=== PATIENT | male | born 2000 | race African-American/Black ===

== ENCOUNTER 2020-05-02 20:49 | Emergency (ER) | payer OTHER, SELFPAY ==
[2020-05-02 20:50] VITALS: BP 120/74; PULSE 80; RESP 14; TEMP 37.1; O2SAT 100; BMI 26.9
--- NOTE | 2020-05-02 21:04 | ED.RN ---
CALLED FOR EKG PER RN REQUEST, NO OLD EKGS IN MUSE
--- NOTE | 2020-05-02 21:12 | EKG12_ITS ---
Test Reason : DYSRHYTHMIA Blood Pressure : / mmHG Vent. Rate : 075 BPM Atrial Rate : 075 BPM P-R Int : 150 ms QRS Dur : 100 ms QT Int : 348 ms P-R-T Axes : 061 076 045 degrees QTc Int : 388 ms Sinus rhythm with marked sinus arrhythmia Minimal voltage criteria for LVH, may be normal variant Early repolarization Borderline ECG Confirmed by DOC MORIN, GUANAKITO ([id number]), manuscript editor SORAYA PARDO ([id number]) on 05/07/2020 2:18:35 PM Referred By: CL Confirmed By:GUANAKITO ROACH MD
[2020-05-02 21:25] LABS: Absolute Lymphocyte Count 1.51 X10^3/uL (0.83-4.51); Basophil# 0.03 X10^3/uL; Basophil% 0.4 % (0-1); Eosinophil# 0.13 X10^3/uL; Eosinophils% 1.6 % (0-5); Hematocrit 42.8 % (40-54); Hemoglobin 14.4 g/dL (13.0-16.5); Lymphocyte # 1.51 X10^3/ul (4.0); Lymphocyte % 18.3 % (19-41); Mean Corp Hgb Conc 33.6 g/dL (32-36); Mean Corpuscular Hgb 31.4 pg (27.0-32.0); Mean Corpuscular Volume 93.2 fL (80-94); Mean Platelet Vol. 11.2 fl (6.2-12.0); Monocyte# 0.58 X10^3/uL; NRBC Flagged by Analyzer 0 % (0-5); Neutrophil # 5.97 X10^3/uL (2.7-7.7); Neutrophil % 72.3 % (47-70); Platelet Count 238 K/mm3 (150-450); RBC Distribution Width CV 11.9 % (11.6-14.6); RBC Distribution Width SD 40.7 fl (35.1-43.9); Red Blood Count 4.59 M/mm3 (4.6-6.2); White Blood Count 8.3 K/mm3 (4.4-11.0)
[2020-05-02] MEDS: 0.9% Normal Saline 1,000 ML 1000 ML IV (21:30)
[2020-05-02] MEDS: Ondansetron 4 MG/2 ML Vial IV (21:30)
[2020-05-02 21:36] LABS: Bedside Glucose 74 mg/dL (70-110)
--- NOTE | 2020-05-02 21:39 | RAD_ITS ---
STUDY: X-RAY CHEST REASON FOR EXAM: Male, 19 years old. PT WAS AT [employer] WHEN HE COULDN''T CATCH HIS BREATH. PREVENTION SPECIALIST TOOK HIM OUTSIDE AND HE HAD NEAR SYNCOPE. PT STATES HE HAD ASTHMA WHEN HE WAS YOUNGER BUT HASN''T USED AN INHALER IN YEARS. BLOOD SUGAR FOR EMS WAS 84. PT STATES ABDOMINAL PAIN AND NAUSEA RECENTLY and quot; TECHNIQUE: Single frontal view of the chest. COMPARISON: None. FINDINGS: The lungs are clear and expanded. There is no demonstrated pleural abnormality. Normal size heart. Normal mediastinum and south. Normal visualized pulmonary arteries. Normal visualized aortic arch and descending thoracic aorta. Normal visualized thoracic spine. Normal visualized ribs, clavicles, and shoulders. There is no demonstrated abnormality of the visualized soft tissue structures of the upper abdomen. RAD/Chest 1 View (Portable) IMPRESSION: Normal x-ray examination of the chest. Electronically Signed: Umu Huertas MD at 22:23 EDT Tel , Service support ,
[2020-05-02 22:10] LABS: ALB/GLOB Ratio 1.2 RATIO (0.9-2.4); AST(SGOT) 27 U/L (15-37); Alanine Aminotransfer ALT/SGPT 27 U/L (16-61); Albumin, Serum 4.1 g/dL (3.2-5.0); Alkaline Phosphatase 79 U/L (45-117); Anion Gap 11 (5-15); BUN 15 mg/dL (7-18); BUN/Creat Ratio 8.1 RATIO (10-20); Calcium,Total 9.8 mg/dL (8.5-10.1); Chloride 108 mmol/L (98-107); Creatinine, Serum 1.86 mg/dL (0.70-1.30); EST Glomerular Filtration Rate 49 mL/min (>60); Est Glom Filt Rate - Afr Amer 59 mL/min (>60); Estimated Creatinine Clearance 79.84 ml/min; Globulin 3.5 g/dL (2.2-4.2); Glucose 83 mg/dL (74-106); Potassium 3.8 mmol/L (3.5-5.1); Protein, Total 7.6 g/dL (6.4-8.2); Sodium Level 142 mmol/L (136-145)
[2020-05-02 22:23] VITALS: BP 128/74; PULSE 69; RESP 18; O2SAT 100
--- NOTE | 2020-05-02 22:46 | ED.DCSUM_ITS ---
History of Present Illness Chief Complaint: Syncope Informant: Patient Narrative: 19 year-old male with no past medical history presents with concern for presyncope and shortness of breath. Patient was exerting himself today at basketball practice when he began increasingly short of breath. [place] like he was going to pass out. May have passed out. No head injury. States that he is feeling well now. States he has felt nauseous for the past few days. States he has had one episode of vomiting. Not eating or drinking well today. Past Medical History - Allergies and Home Meds Allergies/Adverse Reactions: Allergies No Known Allergies Allergy (Verified 05/02/20 20:56) Past Medical History: None Surgical History: no surgical history Lives: Alone Smoking Status: Never smoker Alcohol: None Drugs: None Review of Systems General: Denies: Chills, Fever, Sweats Eyes: Denies: Visual changes - bilaterally, Diplopia ENT: Denies: Rhinorrhea, Sore throat Cardiovascular: Denies: Chest pain, Palpitations Respiratory: Reports: Dyspnea. Denies: Cough, Dyspnea on exertion Gastrointestinal: Denies: Abdominal pain, Nausea, Vomiting, Diarrhea, Melena, Hematochezia Genitourinary: Denies: Dysuria, Hematuria, Frequency Musculoskeletal: Denies: Back pain, Extremity Pain Skin: Denies: Rash, Wounds Neurological: Reports: - - Syncope. Denies: Headache, Weakness, Numbness Physical Exam Vital Signs/Narrative: Vital Signs Temp Pulse Resp BP Pulse Ox 05/02/20 22:23 69 18 128/74 H 100 05/02/20 20:50 98.7 F 80 14 120/74 100 Inital Vital Signs reviewed: Yes General: Well nourished, Well developed, No Acute Distress Head: Normocephalic, Atraumatic Eyes: Perrl, EOMI ENT: Moist mucous membranes, No rhinorrhea Neck: Supple, Nontender Cardiovascular: Regular rate, Regular rhythm, No murmurs Respiratory: No distress, CTA bilaterally, Chest nontender Abdomen: Soft, Nontender, Nondistended, Normal bowel sounds Back: Nontender, Normal Inspection Extremities: Nontender, No edema Skin: Normal color, No rash Neurological: Alert, Oriented x3, Cranial nerves II-XII grossly intact, Normal Strength, Normal Sensation Psychological: Normal affect, Normal Mood Diagnostic/Tx/Re-eval Clinical Impression(s) from Imaging Studies Chest X-Ray 05/02/20 21:39 IMPRESSION: Normal x-ray examination of the chest. Electronically Signed: Umu Huertas MD at 22:23 EDT Tel , Service support , Laboratory Data 05/02/20 05/02/20 05/02/20 20:57 20:57 21:29 WBC 8.3 RBC 4.59 L Hgb 14.4 Hct 42.8 MCV 93.2 MCH 31.4 MCHC 33.6 RDW Std Deviation 40.7 RDW Coeff of Carol 11.9 Plt Count 238 MPV 11.2 Immature Gran % (Auto) 0.400 Neut % (Auto) 72.3 H Lymph % (Auto) 18.3 L Franklin % (Auto) 7.0 Eos % (Auto) 1.6 Baso % (Auto) 0.4 Absolute Neuts (auto) 6.0 Absolute Lymphs (auto) 1.51 Nucleated RBC % 0 Sodium 142 Potassium 3.8 Chloride 108 H Carbon Dioxide 23.0 Anion Gap 11 BUN 15 Creatinine 1.86 H Estim Creat Clear Calc 79.84 Est GFR (MDRD) Af Amer 59 L Est GFR (MDRD) Non-Af 49 L BUN/Creatinine Ratio 8.1 L Glucose 83 Calcium 9.8 Total Bilirubin 1.20 H AST 27 ALT 27 Alkaline Phosphatase 79 Troponin I < 0.015 Total Protein 7.6 Albumin 4.1 Globulin 3.5 Albumin/Globulin Ratio 1.2 POC Glucose 74 - Rhythm Strip Rhythm Strip: Sinus Rhythm Rate: 75 - EKG Initial EKG Interpretation: Sinus Rhythm - Sinus rhythm at 75 bpm. NH interval of 150 ms. QTC of 388 ms. LVH. Early repolarization. - Medical Decision Making Appears well nontoxic. Vital signs within normal limits. EKG concerning for LVH. No evidence of acute ischemia. Lab work shows volume depletion. Patient given 1 L of normal saline. Given Zofran advised on continued p.o. hydration. Patient will be given follow-up with cardiology. Advised on outpatient echocardiogram. Expressed extreme concern for no physical activity until echocardiogram can be performed. Advised to return for any further symptoms. Patient agreeable and discharged home in stable condition. ED Disposition - Plan for ED Patient: Disposition: Home or Assisted Living Instructions: ED Near-Fainting Uncertain Cause, Dehydration Prescriptions: Ondansetron [Zofran Odt] 4 mg PO Q8H PRN PRN #10 tab PRN Reason: Nausea Prescription Printed Referrals: Timmy Mancilla MD [STAFF PHYSICIAN] - As soon as possible Additional Instructions: Please call cardiology tomorrow to set up follow-up. Please ask about outpatient echocardiogram.
[2020-05-02 23:13] VITALS: BP 133/71; PULSE 71; RESP 20; O2SAT 100
== END 2020-05-02 23:14 | disposition home or self-care (01) ==
LOC: ED 22:53
PROVIDERS: Emergency Provider Emergency Medicine
DX: R55 Syncope and collapse (principal); R94.31 Abnormal electrocardiogram [ECG] [EKG]
CPT/HCPCS: 71045; 80053; 82962; 84484; 85025; 93005; 96361; 96374; 99285; J2405

== ENCOUNTER → 2020-07-19 08:55 | Outpatient (CLI) | payer MEDICAID, SELFPAY ==
[2020-05-14 13:54] VITALS: BMI 26.5
--- NOTE | 2020-07-19 08:58 | ECHOCS_ITS ---
Version 2 Reason For Study: Syncope Procedure This was a 2D Doppler, Color Flow transthoracic echocardiogram. Contrast injection was performed. Exam performed in department. Left Ventricle Normal LV size. The estimated ejection fraction is 50-55 %. No evidence for diastolic dysfunction. No regional wall motion abnormalities noted. Right Ventricle Normal RV size. Normal systolic function. Atria Normal left atrium. Normal right atrium. No doppler evidence for ASD. Mitral Valve There is no mitral valve stenosis. Mild (1+) mitral valve insufficiency. Tricuspid Valve There is no tricuspid stenosis. Mild tricuspid valve insufficiency. Pulmonary artery systolic pressure is 25 mmHg. Aortic Valve Trisinus/trileaflet aortic valve. There is no aortic stenosis. No aortic valve insufficiency. Pulmonic Valve There is no pulmonic valvular stenosis. Trivial pulmonic valve insufficiency. Great Vessels Normal aortic root. Pericardium/Pleural No pericardial effusion. Medication Diluted definity 4ml given slow IV push to enhance endocardial definition. MMode/2D Measurements & Calculations LVIDd: 5.4 cm IVSd: 0.84 cm Ao root diam: 2.5 cm LVIDs: 3.9 cm LVPWd: 1.1 cm RVDd: 3.3 cm FS: 27.5 % LAV(MOD-bp): 40.3 ml LVAd ap4: 39.8 cm2 SV(MOD-sp4): 77.2 ml LAV(MOD-bp) Indexed: 17.7 ml/m2 EDV(MOD-sp4): 140.1 ml LAV(MOD-sp2): 51.1 ml EDV(sp4-el): 143.4 ml LAV(MOD-sp4): 27.3 ml LVAs ap4: 24.5 cm2 ESV(MOD-sp4): 62.9 ml ESV(sp4-el): 64.4 ml EF(MOD-sp4): 55.1 % EF(sp4-el): 55.1 % SV(sp4-el): 79.0 ml LA A4 area: 13.5 cm2 LA dimension(2D): 3.2 cm RA A4 area: 18.3 cm2 Doppler Measurements & Calculations MV E max jack: 69.6 cm/sec Lat Peak E' Jack: 18.3 cm/sec Med Peak E' Jack: 11.2 cm/sec MV A max jack: 45.0 cm/sec E/E' lat: 3.8 E/E' med: 6.2 MV E/A: 1.5 Ao V2 max: 120.2 cm/sec LV V1 max: 106.4 cm/sec PA V2 max: 96.3 cm/sec Ao max P.8 mmHg LV V1 max P.5 mmHg Ao V2 mean: 84.1 cm/sec Ao mean P.1 mmHg Ao V2 VTI: 24.5 cm TR max jack: 229.9 cm/sec TR max P.1 mmHg Interpretation Summary The estimated ejection fraction is 50-55 %. No evidence for diastolic dysfunction. Mild (1+) mitral valve insufficiency. Ordering Physician: Timmy Mancilla Referring Physician: Len Nichols Performed By: Ingrid Ramirez, FREYA, RVT
== END ==
PROVIDERS: PCP Family Medicine; Referring Provider Family Medicine; Visit Provider Family Medicine
DX: R55 Syncope and collapse (principal)
CPT/HCPCS: 93306; Q9957; A4216; C8929

== ENCOUNTER → 2020-07-24 11:54 | Outpatient (CLI) | payer MEDICAID, SELFPAY ==
[2020-05-14 13:54] VITALS: BMI 26.5
== END ==
PROVIDERS: PCP Family Medicine; Referring Provider Specialist; Visit Provider Specialist
DX: R00.2 Palpitations (principal); R55 Syncope and collapse
CPT/HCPCS: 93225; 93226

== ENCOUNTER → 2020-10-15 16:13 | Outpatient (CLI) | payer MEDICAID, SELFPAY ==
[2020-05-14 13:54] VITALS: BMI 26.5
[2020-10-15 16:44] LABS: Absolute Lymphocyte Count 1.98 X10^3/uL (0.83-4.51); Absolute Neutrophil Count 2.6 X10^3/uL (2.0-7.7); Basophil# 0.06 X10^3/uL; Basophil% 1.1 % (0-1); Eosinophil# 0.27 X10^3/uL; Hematocrit 47.5 % (40-54); Hemoglobin 15.7 g/dL (13.0-16.5); Lymphocyte # 1.98 X10^3/ul (4.0); Lymphocyte % 36.8 % (19-41); Mean Corp Hgb Conc 33.1 g/dL (32-36); Mean Corpuscular Hgb 30.2 pg (27.0-32.0); Mean Corpuscular Volume 91.3 fL (80-94); Mean Platelet Vol. 11.4 fl (6.2-12.0); Monocyte# 0.51 X10^3/uL; Monocyte% 9.5 % (0-10); NRBC Flagged by Analyzer 0 % (0-5); Neutrophil # 2.55 X10^3/uL (2.7-7.7); Neutrophil % 47.4 % (47-70); Platelet Count 269 K/mm3 (150-450); RBC Distribution Width CV 11.6 % (11.6-14.6); RBC Distribution Width SD 39.1 fl (35.1-43.9); White Blood Count 5.4 K/mm3 (4.4-11.0)
== END ==
DX: R19.5 Other fecal abnormalities (principal)
CPT/HCPCS: 36415; 85025

== ENCOUNTER 2020-11-12 06:24 | Day surgery (SDC) | payer MEDICAID, SELFPAY ==
[2020-11-07 14:30] VITALS: BMI 27.0
[2020-11-12] VITALS (7 sets, daily range): BP systolic 99–119; BP diastolic 55–70; PULSE 44–55; RESP 16; TEMP 35.9–36.2; O2SAT 98–100; BMI 26.2
[2020-11-12] MEDS: Lactated Ringers 1,000 ML 100 ML IV (07:00)
--- NOTE | 2020-11-12 07:12 | HP.PCM_ITS ---
History and Physical Date of Admission: 11/12/20 Date of Service: 11/07/20 MR#: [id number] Acct: [id number] Name: MAIKEL FELIX Jr. p #: [phone] : 2000 Provider: Dr. Dedra Ward MD Age/Sex: 20/M Location: [facility] Status: Signed Intake Vital Signs 11/07/20 Height 6 ft 5 in 11/07/20 Weight: 228 lb 11/07/20 BMI 27.0 11/07/20 BP 109/77 11/07/20 Blood Pressure Location Rt brachial 11/07/20 Position Sitting 11/07/20 Respiration 16 11/07/20 Pulse 69 11/07/20 Pulse Source Monitor 11/07/20 Temp 98.0 F 11/07/20 Temp Source Temporal 11/07/20 Pulse Oximetry (%) 98 11/07/20 Oxygen Delivery Method room air Intake Visit Reasons: Rectal Bleeding C-Scope Heavy Equipment Operator Required: No Is patient in pain?: No Allergies No Known Allergies Allergy (Verified 11/07/20 14:31) Medications NK 05/14/20 [History Confirmed 11/07/20] PFSH Medical History Acid reflux (Acute) Constipation (Acute) Anxiety (Acute) Shortness of breath (Acute) Syncope (Acute) Surgical History No significant past surgical history (Acute) Family History Grandfather Diabetes Social History (Updated 11/07/20 @ 14:[address] 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 Patient states since mid August he has been having small amount of bright red blood on the toilet paper when he wipes he states he has not anything for about a week and a half. Patient did state that he did change his diet about a week and half ago and in creased fiber. Patient admits to currently no straining he did state he did previously strain. Patient denies any pain with bowel movements does state he may have some occasional itchiness. Patient denies any abdominal pain or any family history of colon cancer. Patient is never had a previous scope. Patient states when this all started he did have some constipation in August. Exam Const General: cooperative, comfortable, no acute distress, well developed Resp Effort & Inspection: normal respiratory effort Cardio Rate: regular rate GI Inspection: no incisions Palpation: soft, no guarding, nontender Other: JOHN: Patient does have an anal skin tag at 12:00 at the base there is a small wound about 2 to 3 mm in size this does not travel further into the anus has a fissure would. No obvious internal hemorrhoids on exam, minimal bleeding from the wound at 12:00, otherwise no gross blood Assessment & Plan Problems 1. BRBPR (bright red blood per rectum) K62.5 Plan I have discussed the above with the patient. I have offered the patient colonoscopy for evaluation. I have explained the risks/benefits of the procedure and described the procedure. I have discussed the risks with the patient, including but not limited to: infection, bleeding, perforation of the GI tract requiring emergency surgery, inability to complete the procedure, injury to any internal organs, complications of anesthesia, etc. - the patient understands and agrees to proceed. I have answered all the patient's questions to the patient's satisfaction and the patient has no further questions. The patient has been given instructions for the colon cleansing preparation. 1 day clears, MiraLAX Dulcolax split prep. Daina Ward M.D. Pager: [phone] [facility] [address] [place] [address], [facility], [address] [place] [address] Office: [phone] Plan Detail Follow Up We will schedule colonoscopy for next week Coding Level of Care Code Off vis,new,level 3 Diagnoses BRBPR (bright red blood per rectum) K62.5 COVID (Procedure Consent) Procedure Criteria Procedure Criteria: Yes Elective The surgeon/proceduralist and patient have discussed in detail the risk of exposure to and/or potential harm posed by the COVID-19 virus with having a surgery/procedure at this time versus the risk of? delaying the surgery/procedure. It is not possible to know either the risk of delaying the surgery or procedure or chance of getting an infection with perfect accuracy, but a joint decision was made between the patient and the surgeon/proceduralist ?to proceed at this time with the scheduled surgery/procedure as indicated on the consent form. 11/07/20 1439 <Electronically signed by Daina Longoria am, MD> Date _ Daina Ward MD
--- NOTE | 2020-11-12 07:30 | COLBX_PTH ---
PATIENT: MAIKEL FELIX Jr. LOC: EN U#:[id number] AGE/SX: 20/M ROOM: RE11/12/[address]: Dr. Daina Ward MD : 2000 BED: DIS: 11/12/2020 SPEC #: [id number] RECD: 11/12/20 10:38 STATUS: TERI REQ #: [id number] NUVIA: 11/12/20 07:[address]: Daina Ward DEPT: SURGICAL PATHOLOGY RECD BY: Deyanira Livingston ENTERED: 11/12/20 13:11 SP TYPE: COLON BX OTHR DR: Maddi Burnett, TRAINING AND DEVELOPMENT REP-C [facility] Tissues: Rectum, NOS Procedures: Surgery Specimen Level IV HEADER OPERATION: Colonoscopy (MAC) PRE-OP DIAGNOSIS: Bleeding per rectum TISSUE SUBMITTED: Rectal biopsy MICROSCOPIC DIAGNOSIS Rectal biopsy: Focal acute colitis. See comment. AM:lianne 11/13/2020 COMMENT A single crypt abscess is noted. The glandular architecture is unremarkable. No ulceration of mucosa is seen. Clinical correlation is suggested. MICROSCOPIC DESCRIPTION Slides are reviewed. GROSS DESCRIPTION Received in fixative is one container labeled with the patient's name and designated rectal biopsy. The specimen consists of two irregular fragments of light darby soft tissue that in aggregate measure 0.5 x 0.3 x 0.1 cm. The specimen is totally submitted in one cassette. / CALIN:lianne 11/12/20 TC:2 CPT: 38903
--- NOTE | 2020-11-12 08:08 | OP.COLON_ITS ---
Patient Name: Shiv Mock Procedure Date: 11/12/2020 7:28 AM Date of : 2000 Age: 20 Procedure: Colonoscopy Indications: Rectal bleeding Providers: Daina Ward MD Referring MD: Nancy Lindo [facility] Medicines: Monitored Anesthesia Care Patient Profile: This is a 20 year old male. Last Colonoscopy: none. The patient's first colonoscopy is today. Complications: No immediate complications. Procedure: Pre-Anesthesia Assessment: - Prior to the procedure, a History and Physical was performed, and patient medications and allergies were reviewed. The patient's tolerance of previous anesthesia was also reviewed. The risks and benefits of the procedure and the sedation options and risks were discussed with the patient. All questions were answered, and informed consent was obtained. Prior Anticoagulants: The patient has taken no previous anticoagulant or antiplatelet agents. ASA Grade Assessment: Per anesthesia. After reviewing the risks and benefits, the patient was deemed in satisfactory condition to undergo the procedure. After I obtained informed consent, the scope was passed under direct vision. Throughout the procedure, the patient's blood pressure, pulse, and oxygen saturations were monitored continuously. The Colonoscope was introduced through the anus and advanced to the cecum, identified by the appendiceal orifice, ileocecal valve and palpation. The colonoscopy was performed without difficulty. The patient tolerated the procedure well. The quality of the bowel preparation was good. Scope In: 7:36:33 AM Scope Withdrawal Time 0 hours 13 minutes 49 seconds Scope Out: 7:59:10 AM Total Procedure Duration Time 0 hours 22 minutes 37 seconds Findings: Skin tags were found on perianal exam. A less than 5 mm polyp was found in the rectum. The polyp was sessile. The polyp was removed with a cold biopsy forceps. Resection and retrieval were complete. The exam was otherwise without abnormality on direct and retroflexion views. Impression: - Perianal skin tags found on perianal exam. - One less than 5 mm polyp in the rectum, removed with a cold biopsy forceps. Resected and retrieved. - The examination was otherwise normal on direct and retroflexion views. Recommendation: - Discharge patient to home. - Resume previous diet. - Continue present medications. - Await pathology results. - Repeat colonoscopy in 5-10 years for surveillance based on pathology results. Procedure Code(s): --- Professional --- 29412, Colonoscopy, flexible; with biopsy, single or multiple Diagnosis Code(s): --- Professional --- K62.1, Rectal polyp K64.4, Residual hemorrhoidal skin tags K62.5, Hemorrhage of anus and rectum CPT copyright 2017 [employer]. All rights reserved. The codes documented in this report are preliminary and upon diplomatic officer review may be revised to meet current compliance requirements. MD Daina Palacio MD 11/12/2020 8:07:53 AM This report has been signed electronically. Number of Addenda: 0 Note Initiated On: 11/12/2020 7:28 AM
--- NOTE | 2020-11-12 08:08 | OP.CCLET_ITS ---
11/12/2020 Nancy Lindo [facility] Re : Colon[facility] This procedure was performed on Thursday, November 12, 2020. My impressions and recommendations are as follows: Impressions : - Perianal skin tags found on perianal exam. - One less than 5 mm polyp in the rectum, removed with a cold biopsy forceps. Resected and retrieved. - The examination was otherwise normal on direct and retroflexion views. Recommendations : - Discharge patient to home. - Resume previous diet. - Continue present medications. - Await pathology results. - Repeat colonoscopy in 5-10 years for surveillance based on pathology results. My findings are described in the full procedure note, which is enclosed. If I can be of further assistance, please feel free to contact me at Doctor phone number(s): , Work: . Sincerely, MD Daina Palacio MD 11/12/2020 8:07:53 AM This report has been signed electronically.
== END 2020-11-12 08:59 | disposition home or self-care (01) ==
LOC: EN 06:30 → AC 06:30
PROVIDERS: Visit Provider Surgery
PROC: 0DJD8ZZ Inspection of Lower Intestinal Tract, Via Natural or Artificial Opening Endoscopic (ICD-10-PCS; CPT 45378; principal; 2020-11-12 07:25)
DX: K52.9 Noninfective gastroenteritis and colitis, unspecified (principal); K64.4 Residual hemorrhoidal skin tags; F17.200 Nicotine dependence, unspecified, uncomplicated; J45.909 Unspecified asthma, uncomplicated; Z79.51 Long term (current) use of inhaled steroids; Z20.822 Contact with and (suspected) exposure to COVID-19
CPT/HCPCS: 45380; 87426; 88305; C9803; J7120; J2405

== ENCOUNTER → 2022-01-06 | Outpatient (CLI) | payer MEDICAID, SELFPAY ==
--- NOTE | 2022-01-06 09:53 | RAD_ITS ---
STUDY: X-RAY - ABDOMEN/PELVIS REASON FOR EXAM: Male, 21 years old. ABD PAIN TECHNIQUE: AP supine and upright views of the abdomen and pelvis. COMPARISON: None. FINDINGS: Normal visualized lung bases. There is an unremarkable bowel gas pattern. There is no demonstrated free abdominal air. The visualized liver, spleen and kidneys are grossly normal in size and morphology. Normal soft tissue structures. Normal visualized osseous structures. RAD/Abd Inc Decub and/or Erect IMPRESSION: Normal x-ray examination of the abdomen and pelvis. Electronically Signed: Johnson Martin MD at 17:00 EDT ,
[2022-01-06 10:35] LABS: Erythrocyte Sedimentation Rate 4 mm/hr (0-20)
[2022-01-06 10:37] LABS: Absolute Lymphocyte Count 2.32 X10^3/uL (0.83-4.51); Absolute Neutrophil Count 3.6 X10^3/uL (2.0-7.7); Basophil# 0.03 X10^3/uL; Basophil% 0.5 % (0-1); Eosinophil# 0.12 X10^3/uL; Eosinophils% 1.8 % (0-5); Hematocrit 45.2 % (40-54); Hemoglobin 15.3 g/dL (13.0-16.5); Lymphocyte # 2.32 X10^3/ul (0.83-4.51); Lymphocyte % 34.9 % (19-41); Mean Corp Hgb Conc 33.8 g/dL (32-36); Mean Corpuscular Hgb 31.2 pg (27.0-32.0); Mean Corpuscular Volume 92.1 fL (80-94); Mean Platelet Vol. 11.1 fl (6.2-12.0); Monocyte# 0.57 X10^3/uL; Monocyte% 8.6 % (0-10); NRBC Flagged by Analyzer 0 % (0-5); Neutrophil # 3.58 X10^3/uL (2.7-7.7); Neutrophil % 53.7 % (47-70); Platelet Count 251 K/mm3 (150-450); RBC Distribution Width CV 11.5 % (11.6-14.6); RBC Distribution Width SD 38.8 fl (35.1-43.9); Red Blood Count 4.91 M/mm3 (4.6-6.2); White Blood Count 6.7 K/mm3 (4.4-11.0)
[2022-01-06 10:56] LABS: ALB/GLOB Ratio 1.2 RATIO (0.9-2.4); AST(SGOT) 14 U/L (15-37); Alanine Aminotransfer ALT/SGPT 21 U/L (16-61); Albumin, Serum 3.8 g/dL (3.2-5.0); Alkaline Phosphatase 96 U/L (45-117); Anion Gap 5 (5-15); BUN 15 mg/dL (7-18); BUN/Creat Ratio 14.6 RATIO (10-20); Calcium,Total 8.8 mg/dL (8.5-10.1); Chloride 106 mmol/L (98-107); Creatinine, Serum 1.03 mg/dL (0.70-1.30); EST Glomerular Filtration Rate 95 mL/min (>60); Est Glom Filt Rate - Afr Amer 116 mL/min (>60); Globulin 3.3 g/dL (2.2-4.2); Glucose 90 mg/dL (74-106); Potassium 3.8 mmol/L (3.5-5.1); Protein, Total 7.1 g/dL (6.4-8.2); Sodium Level 139 mmol/L (136-145)
== END | disposition home or self-care (01) ==
LOC: LAB 09:41
DX: R10.9 Unspecified abdominal pain (principal)
CPT/HCPCS: 36415; 74019; 80053; 85025; 85652